=== PATIENT | male | born 1965 | race Caucasian/White ===

== ENCOUNTER → 2016-03-23 | Outpatient (CLI) | payer OTHER ==
[~2016-03-23] VITALS: Ht 172.7 cm; Wt 85.2 kg
[~2016-03-23] MED LIST: ALBUAER INH; ALPR-411 PO; CETI10TA84 PO; ESCI1TAB10 PO; MULT-506 PO; NAPR-1169 PO; PSEU120T2 PO; SUMA50TA15 PO
[2016-03-23 15:42] VITALS: BP 135/92; PULSE 76; Ht 172.7 cm; Wt 85.2 kg
== END | disposition home or self-care (01) ==
LOC: C.NEUR 15:33
PROVIDERS: ATTEND Internal Medicine Pulmonary Disease
DX: G47.33 Obstructive sleep apnea (adult) (pediatric) (principal); R51 Headache

== ENCOUNTER → 2016-03-23 | Outpatient (CLI) | payer OTHER ==
[2016-03-23 10:09] LABS: CHOLESTEROL/HDL RATIO 3.7; PROSTATE SPECIFIC ANTIGEN 0.412 ng/ml (0.000-4.000)
== END | disposition home or self-care (01) ==
LOC: C.LAB 08:39
PROVIDERS: ATTEND Family Medicine
DX: Z00.00 Encounter for general adult medical examination without abnormal findings (principal); Z13.1 Encounter for screening for diabetes mellitus; Z13.220 Encounter for screening for lipoid disorders

== ENCOUNTER → 2017-03-21 | Outpatient (CLI) | payer BC | END | disposition home or self-care (01) | LOC: C.LAB1850 16:20 | PROVIDERS: ATTEND Family Medicine | DX: Z00.00 Encounter for general adult medical examination without abnormal findings (principal); Z12.5 Encounter for screening for malignant neoplasm of prostate ==